=== PATIENT | male | born 1985 | race Caucasian/White ===

== ENCOUNTER 2016-09-09 03:00 | Observation (INO) | payer OTHER ==
[2016-09-09 03:11] LABS: ABSOLUTE NRBC COUNT 0.02 10^3/uL (0-0.01); ADD DIFF? YES; ADD MORPH? NO; ADD SCAN? NO; ATYPICAL LYMPHOCYTE FLAG 20 (0-99); FRAGMENT RBC FLAG 0 (0-99); HEMATOCRIT 45.9 % (40.0-51.0); HEMOGLOBIN 15.6 g/dL (13.7-17.5); LEFT SHIFT FLG 30 (0-99); LIPEMIA HEMOLYSIS FLAG 90 (0-99); MEAN CELL HEMOGLOBIN 29.9 pg (27.9-34.1); MEAN CELL VOLUME 88.1 fL (81.5-99.8); MEAN PLATELET VOLUME 10.8 fL (8.7-11.7); NRBC-AUTO% 0.1 % (0.0-0.2); PLATELET CLUMPS FLAG 10 (0-99); PLATELET COUNT 331 10^3/uL (150-400); RED BLOOD CELL COUNT 5.21 10^6/uL (4.40-6.38)
[2016-09-09 03:20] LABS: ANION GAP 19 mEq/L (8-16); CALCIUM 9.7 mg/dL (8.5-10.4); CARBON DIOXIDE 19 mEq/l (22-31); CHLORIDE 103 mEq/L (97-110); ETHANOL SERUM 275 mg/dL (0-10); GLOMERULAR FILTRATION RATE > 60; GLUCOSE 125 mg/dL (70-100); SODIUM 141 mEq/L (134-144)
[2016-09-09] MEDS ORDERED: NS 1,000 ML IV ONE (03:20)
[2016-09-09 03:23] LABS: INR 1.07 (0.83-1.16); PROTIME(PATIENT) 13.8 SEC (12.0-15.0)
[2016-09-09 03:24] LABS: APTT 24.9 SEC (23.0-38.0)
[2016-09-09] MEDS ORDERED: ACETAMINOPHEN 325 MG TAB PO PRN (03:31)
[2016-09-09] MEDS ORDERED: ONDANSETRON 4 MG/2 ML VIAL IVP PRN (03:31)
[2016-09-09] MEDS ORDERED: NS 1,000 ML IV SCH (03:45)
[2016-09-09 03:59] LABS: PLATELET ESTIMATE ADEQUATE (ADEQ)
--- NOTE | 2016-09-09 04:07 | GHP ---
[f rep st] HISTORY AND PHYSICAL DATE OF ADMISSION: 09/09/2016 CHIEF COMPLAINT: Full trauma activation. Fall 40 feet. HISTORY OF PRESENT ILLNESS: The patient is a 31-year-old who was at a work outing when he fell off a roof approximately ending 40 feet. He had a brief loss of consciousness. He then climbed up a ladder to the same roof again. EMS was called and he was brought into the hospital. He is complaining of left hand pain. He reports that "everything else is fine". PAST MEDICAL HISTORY: None. PAST SURGICAL HISTORY: None. SOCIAL HISTORY: Denies tobacco use. He has been using alcohol tonight. He denies illegal drug use. He works in [employer] industry. FAMILY HISTORY: Noncontributory. REVIEW OF SYSTEMS: Ten-point review of systems is negative except for left hand pain. MEDICATIONS: None. ALLERGIES: Dust mites and juniper. PHYSICAL EXAMINATION: VITAL SIGNS: Heart rate 130s, blood pressure 140/80, respiration 18, 98% on room air. GENERAL: Well-nourished, intoxicated man lying on gurney. At times cooperative with exam. HEENT: Normocephalic. No gross hearing deficits. No hemotympanum. No otorrhea. No rhinorrhea. He does have dried blood in his nares. His pupils are equal and round and reactive to light. No midface instability. Teeth fit together normally. NECK : No cervical spine tenderness. CHEST: No clavicular, sternal or rib tenderness. LUNGS: Clear to auscultation bilaterally. No increased work of breathing. CARDIAC: Tachycardic. ABDOMEN: Bowel sounds present. Soft, nontender, nondistended. Pelvis: non tender NEUROLOGIC: 2 through 12 grossly intact. SKIN: Small abrasion on his naris. Small abrasion to right ankle and right knee. BACK: No tenderness. MUSCULOSKELETAL: Gross deformity of his left hand. Other ledesma 5/5 strength LABORATORY DATA: Results reviewed. His alcohol level is 275. Hemoglobin/ hematocrit 15.6 and 45. INR 1.7. Chemistry panel within normal limits. Glucose at 125. I performed a fast exam and there was no pericardial effusion, no fluid between the liver and kidney nor between the spleen and kidney. The bladder was small but no obvious fluid in the pelvis. IMPRESSION: The patient is a 31-year-old status post fall 40 feet while intoxicated. 1. Nasal fracture. I will consult ENT to assess if anything needs to be done with the fracture. 2. Dislocation proximal phalanx, left hand. Consult Dr. Shirley 3. Will admit to the floor give IV hydration and pain control until we have heard from the consultants. In the CT scanner for his head and c-spine, Justin expressed that he did not want to have work up and was concerned about cost. I explained to Justin that he was intoxicated with a loss of consciousness with large mechanism of injury. We are ruling out a head injury. His vitals are stable other than tachycardia. He is agitated. We will perform a tertiary survey when more sober , finger reduced and determine if any other work up needs to be performed. /[id number]/MODL MTDD
--- NOTE | 2016-09-09 04:09 | EDPHY ---
H & P Stated Complaint: full trauma Time Seen by Provider: 09/09/16 03:06 HPI/ROS: Chief Complaint: Fall HPI: 31-year-old male arrived as a full trauma activation after falling off of a roof approximately 40 feet while intoxicated. After the fall patient attempted to climb back up the roof on a ladder. Patient had a positive loss of consciousness per witnesses. Patient complaining of left hand and facial pain. No numbness or weakness. No headache. No chest pain. No abdominal pain. No other extremity complaints. ROS: 10 point Review of Systems is negative except as noted in the HPI. PMH: Denies Social History: positive alcohol, no recreational drug use Family History: non-contributory Physical Exam: Gen: Awake, Alert, Airway Intact, patient smells of alcohol, is tachycardic HEENT: Head: Atraumatic Eyes: PERRLA, EOMI Ears: No hemotympanum Nose: Dried epistaxis in bilateral nares, no septal hematoma, there is nasal bridge tenderness with mild swelling Mouth: Normal dentition, Airway patent Face: No deformity Neck: non-tender, no stepoff Chest: non-tender, lungs CTA Heart: normal heart tones Abd: soft, non-tender, atraumatic Pelvis: non-tender, stable to AP and Lateral compression Back: atraumatic, no midline tenderness Ext: Left hand there is significant deformity to his 2nd MCP joint consistent with fracture dislocation, full ROM Skin: no rash Neuro: CN II-XII intact, Strength 5/5 in all extremities, sensation intact in all extremities - Medical/Surgical History Hx Asthma: No Hx Chronic Respiratory Disease: No Hx Diabetes: No Hx Cardiac Disease: No Hx Renal Disease: No Hx Cirrhosis: No Hx Alcoholism: No Hx HIV/AIDS: No Hx Splenectomy or Spleen Trauma: No Other PMH: none - Social History Smoking Status: Current some day smoker Constitutional: Initial Vital Signs Temperature (C) 36.6 C 09/09/16 03:00 Heart Rate 151 H 09/09/16 03:00 Respiratory Rate 18 09/09/16 03:00 Blood Pressure 182/90 H 09/09/16 03:00 O2 Sat (%) 94 09/09/16 03:00 O2 Delivery Mode Room Air Allergies/Adverse Reactions: juniper tar Allergy (Verified 09/09/16 03:31) dust mite Allergy (Uncoded 09/09/16 03:31) Home Medications: Medication Instructions Recorded NK [No Known Home Meds] 09/09/16 Medical Decision Making - Diagnostics Imaging Results: CT head is negative for acute intracranial injury. Does have a nasal bone deformity. CT cervical spine is negative for acute bony abnormality. Interpreted by Dr. Rawls. Imaging: Discussed imaging studies w/ call specialist Radiologist ED Course/Re-evaluation: 31-year-old male arrived as a full trauma activation. Dr. Heidi Gustafson and myself in attendance on patient arrival. Primary survey is completed. Patient is tachycardic and hypertensive. Obvious nasal injury and left hand. Fast scan performed by Dr. Gustafson is negative. CT scans reported as negative with exception of a nasal bone fracture. Dr. Gustafson has discussed with Hand surgery who will see the patient in the hospital. Patient is intoxicated. He also continues to be tachycardic there is no evidence of acute bleeding at this time. Patient will be admitted for further care. Dr. Gustafson will admit to her service. - Data Points Laboratory Results: Laboratory Results 09/09/16 03:05 09/09/16 03:05 09/09/16 09/09/16 09/09/16 03:08 03:08 03:05 WBC RBC Hgb Hct MCV MCH MCHC RDW Plt Count MPV Neut % (Auto) Lymph % (Auto) [place] % (Auto) Eos % (Auto) Baso % (Auto) Nucleat RBC Rel Count Absolute Neuts (auto) Absolute Lymphs (auto) Absolute Monos (auto) Absolute Eos (auto) Absolute Basos (auto) Absolute Nucleated RBC Immature Gran % Seg Neutrophils % Band Neutrophils % Lymphocytes % Monocytes % Basophils % Metamyelocytes % Immature Gran # Absolute Seg Neuts Absolute Band Neuts Absolute Lymphocytes Absolute Monocytes Absolute Basophils Absolute Metamyelocyte RBC/WBC/PLT Morphology Platelet Estimate PT 13.8 SEC SEC (12.0-15.0) INR 1.07 (0.83-1.16) APTT 24.9 SEC SEC (23.0-38.0) Sodium 141 mEq/L mEq/L (134-144) Potassium 4.0 mEq/L mEq/L (3.5-5.2) Chloride 103 mEq/L mEq/L (97-110) Carbon Dioxide 19 mEq/l L mEq/l (22-31) Anion Gap 19 mEq/L H mEq/L (8-16) BUN 10 mg/dL mg/dL (7-23) Creatinine 1.0 mg/dL mg/dL (0.7-1.3) Estimated GFR > 60 Glucose 125 mg/dL H mg/dL (70-100) Calcium 9.7 mg/dL mg/dL (8.5-10.4) Ethyl Alcohol 275 mg/dL H mg/dL (0-10) Patient ABO/Rh A POSITIVE Antibody Screen NEGATIVE 09/09/16 03:05 WBC 14.38 10^3/uL H 10^3/uL (3.80-9.50) RBC 5.21 10^6/uL 10^6/uL (4.40-6.38) Hgb 15.6 g/dL g/dL (13.7-17.5) Hct 45.9 % % (40.0-51.0) MCV 88.1 fL fL (81.5-99.8) MCH 29.9 pg pg (27.9-34.1) MCHC 34.0 g/dL g/dL (32.4-36.7) RDW 12.0 % % (11.5-15.2) Plt Count 331 10^3/uL 10^3/uL (150-400) MPV 10.8 fL fL (8.7-11.7) Neut % (Auto) Not Reported Lymph % (Auto) Not Reported [place] % (Auto) Not Reported Eos % (Auto) Not Reported Baso % (Auto) Not Reported Nucleat RBC Rel Count 0.1 % % (0.0-0.2) Absolute Neuts (auto) Not Reported Absolute Lymphs (auto) Not Reported Absolute Monos (auto) Not Reported Absolute Eos (auto) Not Reported Absolute Basos (auto) Not Reported Absolute Nucleated RBC 0.02 10^3/uL H 10^3/uL (0-0.01) Immature Gran % Not Reported Seg Neutrophils % 64 % % Band Neutrophils % 7 % % Lymphocytes % 24 % % Monocytes % 3 % % Basophils % 1 % % Metamyelocytes % 1 % % Immature Gran # Not Reported Absolute Seg Neuts 9.20 10^/uL H 10^/uL (1.70-6.50) Absolute Band Neuts 1.01 10^3/uL H 10^3/uL (0.00-0.70) Absolute Lymphocytes 3.45 10^3/uL H 10^3/uL (1.00-3.00) Absolute Monocytes 0.43 10^3/uL 10^3/uL (0.30-0.80) Absolute Basophils 0.14 10^3/uL H 10^3/uL (0.02-0.10) Absolute Metamyelocyte 0.14 10^3/mL H 10^3/mL (0.00-0.00) RBC/WBC/PLT Morphology NORMAL (NORMAL) Platelet Estimate ADEQUATE (ADEQ) PT INR APTT Sodium Potassium Chloride Carbon Dioxide Anion Gap BUN Creatinine Estimated GFR Glucose Calcium Ethyl Alcohol Patient ABO/Rh Antibody Screen Medications Given: Discontinued Medications Sodium Chloride (Ns) 1,000 mls @ 0 mls/hr IV ONCE ONE PRN Reason: Wide Open Stop: 09/09/16 03:21 Last Admin: 09/09/16 03:22 Dose: 1,000 mls Morphine Sulfate (Morphine) 4 mg IVP ONCE ONE Stop: 09/09/16 05:16 Last Admin: 09/09/16 05:07 Dose: 4 mg Departure - Departure Disposition: [facility] Inpatient Acute Clinical Impression: Nasal fracture, Fall, Finger dislocation, Tachycardia Condition: Fair
--- NOTE | 2016-09-09 05:42 | GCON ---
[f rep st] CONSULTATION EMERGENCY DEPARTMENT CONSULTATION DATE OF CONSULTATION: 09/09/2016 REASON FOR CONSULTATION: Left index finger metacarpophalangeal joint dorsal dislocation. HISTORY OF PRESENT ILLNESS: The patient is a 31-year-old gentleman who was brought to the emergency department at [facility] with full trauma activation after a witnessed fall of approx imately 40 feet. The details of this are outlined in his emergency department workup, as well as hi s admission history and physical by Dr. Heidi Gustafson. He complained of isolated left hand pain. He also has multiple abrasions. X-rays revealed a dorsal dislocation of the index metacarpophalangeal joint. I was asked to see him for orthopaedic hand specialty consultation. The patient indicates that he has had no previous problems with his hands. He is complaining of iso lated pain in the left hand. PHYSICAL EXAMINATION: I have examined him, and his index finger metacarpal head is prominent, and i s just under the palmar skin, indicative of it buttonholing through the palmar fascia. The vascular ity of the index finger is intact with capillary refill in the pulp of the index finger of 2 seconds or less, and it is symmetric with the adjacent digits. He also has a normal sensory examination to light touch in the radial, median, and ulnar nerve distributions. ASSESSMENT AND PLAN: After reviewing his x-rays, and discussing this with the patient, I have under sterile conditions, anesthetized the MP joint by a single dorsal approach using 10 cc of 1% lidocai ne. After was set up for 2-3 minutes, I then performed a manipulation. Initially this consisted of longitudinal traction which was unsuccessful. I then hyperextended the MP joint and then shifted t he force in a palmar directed force which successfully reduced the joint combined with longitudinal traction. There were no skin wounds. His joint had free range of motion after the reduction, and s ubsequent x-rays confirmed that anatomical reduction had been achieved. The emergency department st aff will clean up the abrasions on his hand, and then place him in an index finger spica splint for protection for the next 2-3 days. I have given him instructions to follow up with me in my office a s an outpatient in approximately a week for a recheck on his neurovascular status and function of th e MP joint including stability of the collateral ligaments. /[id number]/MODL
--- NOTE | 2016-09-09 08:37 | GCON ---
[f rep st] CONSULTATION DATE OF CONSULTATION: 09/09/2016 REFERRING PHYSICIAN: Heidi Gustafson MD REASON FOR CONSULTATION: Nasal fracture. HISTORY OF PRESENT ILLNESS: The patient fell off a ladder, approximately 40 feet, with a loss of consciousness. Head CT demonstrated nondisplaced nasal fracture. No other complaints. PAST MEDICAL HISTORY: None. PAST SURGICAL HISTORY: None. SOCIAL HISTORY: He is a nonsmoker. He works at [employer] FAMILY HISTORY: Noncontributory. REVIEW OF SYSTEMS: Positive for hand pain. Otherwise, negative. MEDICATIONS: None. ALLERGIES: Dust mites and juniper. PHYSICAL EXAMINATION: GENERAL APPEARANCE: He is awake, alert, oriented, in no apparent distress. NECK: Cervical collar is on. HEENT: Pupils are equal and reactive to light. Extraocular muscles are intact. External nose demonstrates a small bump on the nasal dorsum that is in the midline. There is no mobile nasal segment. He has good nasal breathing, with some dried blood in his nose. No septal hematoma. Septum relatively straight. RADIOLOGY: CT head that was performed, as part of the trauma protocol, was reviewed. There are no facial fractures appreciated, other than a nondisplaced right-sided nasal fracture. IMPRESSION: Nondisplaced nasal fracture. RECOMMENDATIONS: He is unlikely to need any intervention for it. If he chooses to do so, he may follow up with me as an outpatient in the next 1-2 weeks. Otherwise, he can opt to follow up p.r.n. if he has no nasal breathing deficit noted. /[id number]/MODL MTDD
--- NOTE | 2016-09-09 09:00 | TRAUMAPN ---
- Problem/Surgery Performed (1) Elevated ETOH level Assessment/Plan: appears sober this morning Qualifiers: Blood alcohol level: 240 mg/100 ml or more Qualified Code(s): Y90.8 - Blood alcohol level of 240 mg/100 ml or more (2) Back pain of lumbosacaral region with sciatica Assessment/Plan: tenderness on exam/will obtain an AP pelvis and consider CT imaging if fracture suspected (3) Fall Assessment/Plan: fall from 40 ft. height reported Qualifiers: Encounter type: initial encounter Qualified Code(s): W19.XXXA - Unspecified fall, initial encounter (4) Finger dislocation Assessment/Plan: relocated by Dr. Shirley Qualifiers: Encounter type: initial encounter Qualified Code(s): S63.259A - Unspecified dislocation of unspecified finger, initial encounter (5) Nasal fracture Assessment/Plan: consult by Dr. Howe appreciated/unlikely to require further intervention Qualifiers: Encounter type: initial encounter Fracture type: F Fracture healing: F Assessment/Plan: Advance diet and discharge to home if AP pelvis negative Subjective: c/o pain on his tail bone/radiating down his left leg appears sober/in bed with his girlfriend/cervical collar is off Objective: Vital Signs Temp Pulse Resp BP Pulse Ox 37.0 C 99 18 119/69 96 09/09/16 08:42 09/09/16 08:42 09/09/16 08:42 09/09/16 08:42 09/09/16 08:42 09/08/16 09/09/16 09/10/16 05:59 05:59 05:59 Intake Total 1500 1500 Balance 1500 1500 PT 13.8 SEC (12.0-15.0) 09/09/16 03:08 INR 1.07 (0.83-1.16) 09/09/16 03:08 - C-Spine Clearance Cervical Spine Cleared: Yes Provider who Cleared Cervical Spine: Mikael Winters MD, FACS Time Cervical Spine was Cleared: 08:56 Physical Exam - Physical Exam General Appearance: alert, mild distress EENT: other (ecchymosis perinasal) Neck: non-tender, full range of motion, supple Respiratory: chest non-tender, lungs clear Cardiac/Chest: regular rate, rhythm Abdomen: normal bowel sounds, non-tender, soft Back: Other (tender over sacrum/no ecchymosis) Extremities: normal range of motion, non-tender Neuro/Psych: no motor/sensory deficits, alert, normal mood/affect, oriented x 3
[2016-09-09] MEDS: IBUPROFEN 800 MG TAB PO SCH ×2 (09:40→21:53)
[2016-09-09] MEDS ORDERED: LORazepam 2 MG/ML INJ IVP PRN (10:01)
[2016-09-09] MEDS ORDERED: IBUPROFEN 800 MG TAB PO SCH (14:00)
[2016-09-09] MEDS ORDERED: IOPAMIDOL (ISOVUE-300) 100 ML BTL ONE (14:20)
[2016-09-09] MEDS: HYDROCODONE/APAP 5/325 TAB PO PRN (17:38)
--- NOTE | 2016-09-09 18:48 | GCON ---
[f rep st] CONSULTATION DATE OF CONSULTATION: 09/09/2016 CONSULTING SERVICE: Dr. Arnold Winters, trauma surgery. REASON FOR CONSULT: Lumbar and sacral fractures. HISTORY OF PRESENT ILLNESS: The patient is a 31-year-old male, who was quite intoxicated last eveni ng at a work democrat and allegedly fell off a roof, falling some 40 feet. Apparently he was able to g et back on his feet after the fall and even climb a ladder back onto the roof. Due to concerns for the trauma itself, he was brought into the [facility] emergency department and was found to h ave a nondisplaced nasal bone fracture and a left index finger metacarpophalangeal joint dislocation . Additionally, CAT scan today showed a transverse process fracture of L2, a spinous process fractu re of L5, and a right-sided sacral fracture in the S1 region that is linear, nondisplaced, and is un ilateral only. He is complaining of some minor difficulty, likely related to pain, with taking his l eft leg up off the bed but is resting comfortably, actually having a nap with his girlfriend in bed when I arrived to interview him. PAST MEDICAL/SURGICAL HISTORY: None. MEDICATIONS: None. ALLERGIES: DUST MITES and JUNIPER. SOCIAL HISTORY: Denies tobacco, endorses alcohol and did arrive intoxicated, denies drug use. Work s in the [employer] industry. FAMILY HISTORY: Noncontributory, as this is a trauma. He has no knowledge of other spine fractures in his family. REVIEW OF SYSTEMS: Ten point was reviewed and is negative except for stated in HPI. PHYSICAL EXAMINATION: VITALS: Blood pressure 118/73, heart rate 85, respiratory rate 18, O2 sat is 98% on room air. Temperature current 36.8. LABS: White blood cell count 14.3, hemoglobin 15.6, platelet count 331. PT/INR 13.8 and 1.07. PTT 24.9. Sodium 141, potassium 4, BUN and creatinine 10 and 1.0, glucose 125. Alcohol level 275. NEUROLOGIC EXAM: Patient is sleeping comfortably, easily arousable. He has normal fluent speech. He has scattered facial abrasions. He has normal cranial nerves. He is 5/5 in his upper extremitie s without a pronator drift. He is 5/5 in his right lower extremity. He is 5/5 in his left knee ext ensor, dorsi- and plantar flexion, and 4/5 in his left hip flexor. He has a normal sensory exam to light touch and pinprick. He has normal deep tendon reflexes. Gait is deferred. REVIEW OF IMAGING: I reviewed the patient's CT of the chest, abdomen, and pelvis that reveals a pos sible small L2 transverse process fracture, an L5 spinous process fracture, and a fracture of the ri ght sacrum that extends in a linear and a nondisplaced fashion abutting the L5-S1 joint. IMPRESSION AND PLAN: The patient is a 31-year-old male, who had a fall while intoxicated last night , falling approximately 40 feet. He has nasal bone fracture, finger dislocation, an L2 transverse p rocess fracture, an L5 spinous process fracture, and a right S1 sacral fracture that is linear and n ondisplaced. He has a reassuring exam. None of his spinal trauma is operative and he does not have an unstable spinal column. He can be mobilized as he is able. Should he have increased pain with mobilization, a lumbosacral orthotic, an LSO brace, could be ordered from [facility] as needed . I am following along peripherally. Thank you for this consult. I will follow up with the patient i n my office in 4 weeks. /[id number]/MODL
--- NOTE | 2016-09-09 23:14 | GCON ---
[f rep st] CONSULTATION ORTHOPEDIC CONSULTATION DATE OF CONSULTATION: 09/09/2016 REFERRING PHYSICIAN: Arnold Winters MD REASON FOR CONSULTATION: Evaluation of pelvis fracture. HISTORY OF PRESENT ILLNESS: The patient is a 31-year-old gentleman who was drunk and sustained a fa ll from height. He had a hand injury treated by Dr. Shirley. He is complaining of left hip pain. He denies pain in any other extremities except for the left hand. He denies any numbness or tingling. PAST MEDICAL HISTORY: Noncontributory. MEDICATIONS: The patient was placed on medications. PHYSICAL EXAMINATION: VITAL SIGNS: Stable. GENERAL: He is in no acute distress. He is a little disoriented. He is not fully cooperative with exam. EXTREMITIES: Left lower extremity: He has no pain with axial loading. No pain with log roll. Right lower extremity: No pain with log roll. H e appears to be neurovascularly intact. DIAGNOSTIC STUDIES: X-rays and CT scan were reviewed which show a left ramus fracture. No sacral f racture is identified. He also has some spinous process fractures about the lumbar spine. ASSESSMENT AND PLAN: The patient is a 31-year-old gentleman with a left superior pubic ramus fractu re and inferior pubic ramus fracture. At this time, recommend the patient to be weightbearing as to lerated with a walker or crutches. If he cannot tolerate that, then make him touchdown weightbearin g. He is to followup in orthopedic clinic in 2-3 weeks to see me. PROCEDURE PERFORMED: Closed treatment of pelvic ramus disruption. /[id number]/MODL
[2016-09-10] MEDS: HYDROCODONE/APAP 5/325 TAB PO PRN ×2 (02:25→08:02)
[2016-09-10 05:43] VITALS: TEMP 98.1
[2016-09-10] MEDS: IBUPROFEN 800 MG TAB PO SCH (05:44)
[2016-09-10 08:00] VITALS: BP 125/74; PULSE 69; RESP 18; O2SAT 98
--- NOTE | 2016-09-10 14:00 | GDS ---
[f rep st] DISCHARGE SUMMARY HISTORY OF PRESENT ILLNESS: 31-year-old male fell 30 feet off a roof, sustained transverse process fractures in the lumbar spine as well as multiple nondisplaced pelvic fractures, as well as 2nd meta carpophalangeal joint dislocation. He had high blood alcohol on arrival. At the time of discharge he is thinking clearly. He has been seen in consultation by Neurosurgery and Orthopedic Surgery. H is pelvic fractures are nonoperative, will be followed up by Dr. Lang, and spinous process frac tures are all nonoperative as well. FINAL DIAGNOSES: 1. Nasal fracture. 2. Finger dislocation. 3. Lumbar transverse process fractures. 4. Pelvic fracture. DISPOSITION: Follow up with Dr. Lang and Dr. Pagan. /[id number]/MODL
== END 2016-09-10 13:50 | disposition home or self-care (01) ==
LOC: EDUNIT# → F2N 06:22
PROVIDERS: ADMIT Surgery; ATTEND Surgery
PROC: 0RSXXZZ Reposition Left Finger Phalangeal Joint, External Approach (ICD-10-PCS; principal; 2016-09-09)
DX: S02.2XXA Fracture of nasal bones, initial encounter for closed fracture (principal); S32.592A Other specified fracture of left pubis, initial encounter for closed fracture; S32.028A Other fracture of second lumbar vertebra, initial encounter for closed fracture; S32.058A Other fracture of fifth lumbar vertebra, initial encounter for closed fracture; S32.110A Nondisplaced Zone I fracture of sacrum, initial encounter for closed fracture; S63.261A Dislocation of metacarpophalangeal joint of left index finger, initial encounter; F10.129 Alcohol abuse with intoxication, unspecified; W17.89XA Other fall from one level to another, initial encounter
CPT/HCPCS: 26775; 70450; 72125; 72132; 72170; 73130; 74177; 92523; 97116; 97161; 97166; 99285; G0378; G0480; J2405; L3925; Q9967